=== PATIENT | male | born 1955 | race Hispanic/Latino ===

== ENCOUNTER 2017-11-23 07:53 | Emergency (ER) | payer MEDICAID ==
[~2017-11-23 07:53] MED LIST: AMOX-429 PO; ESCI10TA54 PO; FOLI1TAB15 PO; LEVO500T2 PO; LISI-613 PO; SERT100T12 PO; THIAM100TB PO
[2017-11-23 08:27] LABS: BASOPHILS % (AUTO) 1.5 % (0.0-5.0); EOSINOPHILS % (AUTO) 14.1 % (0.0-8.0); LYMPHOCYTES % (AUTO) 31.2 % (21.0-51.0); MEAN CORPUSCULAR HEMOGLOBIN 32.7 pg (27.0-33.0); MEAN CORPUSCULAR HGB CONC 34.6 g/dL (32.0-36.0); MEAN CORPUSCULAR VOLUME 94.4 fL (79-99); MONOCYTES % (AUTO) 7.9 % (3.0-13.0); NEUTROPHILS % (AUTO) 45.3 % (40.0-77.0); NUCLEATED RED BLOOD CELLS 0.1 % (0.0-0.19); PLATELET COUNT (AUTO) 61 K/uL (130-400); RED BLOOD CELL COUNT(AUTO) 3.82 MIL/uL (4.50-6.20); RED CELL DISTRIBUTION WIDTH 15.3 % (11.0-15.5); WHITE BLOOD COUNT (AUTO) 4.1 K/uL (4.8-10.8)
[2017-11-23] MEDS ORDERED: DIAZEPAM 5 MG TABLET ONE (08:28)
[2017-11-23 08:37] LABS: INR 1.29 (0.85-1.15); PARTIAL THROMBOPLASTIN TIME 30.4 SEC (26.3-35.5); PROTHROMBIN TIME 13.5 SEC (9.6-11.6)
[2017-11-23 08:54] LABS: CREATININE 0.7 mg/dL (0.5-1.5); POTASSIUM 3.4 mmol/L (3.5-5.1)
[2017-11-23 08:58] LABS: ALBUMIN 3.5 g/dL (3.5-5.0); BILIRUBIN,TOTAL 1.7 mg/dL (0.2-1.0); TOTAL PROTEIN, SERUM 9.6 g/dL (6.0-8.3)
[2017-11-23 09:11] LABS: AMPHET/METH SCREEN,URINE NEGATIVE (NEGATIVE); BARBITURATE SCREEN, URINE NEGATIVE (NEGATIVE); BENZODIAZEPINES SCREEN,URINE NEGATIVE (NEGATIVE); CANNABINOID SCREEN,URINE NEGATIVE (NEGATIVE); COCAINE SCREEN,URINE NEGATIVE (NEGATIVE); OPIATE SCREEN,URINE NEGATIVE (NEGATIVE); PHENCYCLIDINE SCREEN,URINE NEGATIVE (NEGATIVE)
== END 2017-11-23 10:10 | disposition home or self-care (01) ==
LOC: EDH 07:53
DX: F10.10 Alcohol abuse, uncomplicated (principal); F41.9 Anxiety disorder, unspecified; I10 Essential (primary) hypertension; R79.1 Abnormal coagulation profile; Z87.891 Personal history of nicotine dependence
CPT/HCPCS: 36415; 71045; 80053; 80305; 82550; 84484; 85025; 85610; 85730; 93005; 94761; 99285; G0480

== ENCOUNTER 2018-06-16 22:01 | Emergency (ER) | payer MEDICAID ==
[~2018-06-16 22:01] MED LIST changes: -AMOX-429 PO; +DICY10CA13 PO; -LEVO500T2 PO; +PANT40TA25 PO
[2018-06-16] MEDS ORDERED: LORAZEPAM 1 MG TABLET ONE (23:00)
[2018-06-16 23:13] LABS: BASOPHILS % (AUTO) 0.3 % (0.0-5.0); EOSINOPHILS % (AUTO) 30.7 % (0.0-8.0); HEMATOCRIT 25.7 % (42-54); LYMPHOCYTES % (AUTO) 15.4 % (21.0-51.0); MEAN CORPUSCULAR HEMOGLOBIN 29.3 pg (27.0-33.0); MEAN CORPUSCULAR HGB CONC 33.8 g/dL (32.0-36.0); MEAN CORPUSCULAR VOLUME 86.8 fL (79-99); MONOCYTES % (AUTO) 12.8 % (3.0-13.0); NEUTROPHILS % (AUTO) 40.8 % (40.0-77.0); PLATELET COUNT (AUTO) 44 K/uL (130-400); RED BLOOD CELL COUNT(AUTO) 2.96 MIL/uL (4.50-6.20); RED CELL DISTRIBUTION WIDTH 19.7 % (11.0-15.5); WHITE BLOOD COUNT (AUTO) 4.7 K/uL (4.8-10.8)
[2018-06-16 23:19] LABS: CREATININE 0.7 mg/dL (0.5-1.5); POTASSIUM 3.6 mmol/L (3.5-5.1)
[2018-06-16 23:24] LABS: ALBUMIN 3.1 g/dL (3.5-5.0); BILIRUBIN,TOTAL 1.2 mg/dL (0.2-1.0)
== END 2018-06-17 00:42 | disposition home or self-care (01) ==
LOC: EDH 22:01
DX: S16.1XXA Strain of muscle, fascia and tendon at neck level, initial encounter (principal); R51 Headache; I10 Essential (primary) hypertension; F10.10 Alcohol abuse, uncomplicated; F41.9 Anxiety disorder, unspecified; Z79.899 Other long term (current) drug therapy; W18.39XA Other fall on same level, initial encounter; Y93.89 Activity, other specified; Y92.89 Other specified places as the place of occurrence of the external cause; Y99.8 Other external cause status
CPT/HCPCS: 36415; 70450; 72125; 80053; 85025

== ENCOUNTER 2019-01-13 15:30 | Inpatient (IN) | payer MEDICAID | END 2019-01-18 20:00 | disposition home or self-care (01) | LOC: EDH 15:30 → 2DH 01-14 20:33 → EDHIP 15:31 | DX: F10.231 Alcohol dependence with withdrawal delirium (principal); D69.59 Other secondary thrombocytopenia; M62.82 Rhabdomyolysis; D69.6 Thrombocytopenia, unspecified; F19.10 Other psychoactive substance abuse, uncomplicated; Z71.89 Other specified counseling; E87.1 Hypo-osmolality and hyponatremia; F32.9 Major depressive disorder, single episode, unspecified; K70.30 Alcoholic cirrhosis of liver without ascites; R42 Dizziness and giddiness; I10 Essential (primary) hypertension ==

== ENCOUNTER 2019-02-16 16:40 | Emergency (ER) | payer MEDICARE ==
[~2019-02-16 16:40] MED LIST changes: -DICY10CA13 PO; -ESCI10TA54 PO; -FOLI1TAB15 PO; -SERT100T12 PO; -THIAM100TB PO
[2019-02-16] MEDS ORDERED: DIAZEPAM 5 MG TABLET ONE (17:14)
[2019-02-16 17:21] LABS: BASOPHILS % (AUTO) 0.6 % (0.0-5.0); EOSINOPHILS % (AUTO) 3.8 % (0.0-8.0); HEMATOCRIT 26.6 % (42-54); LYMPHOCYTES % (AUTO) 16.7 % (21.0-51.0); MEAN CORPUSCULAR HEMOGLOBIN 27.6 pg (27.0-33.0); MEAN CORPUSCULAR HGB CONC 33.3 g/dL (32.0-36.0); MEAN CORPUSCULAR VOLUME 82.9 fL (79-99); MONOCYTES % (AUTO) 6.4 % (3.0-13.0); NEUTROPHILS % (AUTO) 72.5 % (40.0-77.0); PLATELET COUNT (AUTO) 36 K/uL (130-400); RED CELL DISTRIBUTION WIDTH 20.3 % (11.0-15.5); WHITE BLOOD COUNT (AUTO) 3.3 K/uL (4.8-10.8)
[2019-02-16 17:30] LABS: AMPHET/METH SCREEN,URINE NEGATIVE (NEGATIVE); BARBITURATE SCREEN, URINE NEGATIVE (NEGATIVE); BENZODIAZEPINES SCREEN,URINE NEGATIVE (NEGATIVE); CANNABINOID SCREEN,URINE NEGATIVE (NEGATIVE); COCAINE SCREEN,URINE NEGATIVE (NEGATIVE); OPIATE SCREEN,URINE NEGATIVE (NEGATIVE); PHENCYCLIDINE SCREEN,URINE NEGATIVE (NEGATIVE)
[2019-02-16 17:35] LABS: CREATININE 0.9 mg/dL (0.5-1.5); POTASSIUM 3.5 mmol/L (3.5-5.1)
[2019-02-16 17:39] LABS: ALBUMIN 3.1 g/dL (3.5-5.0); BILIRUBIN,DIRECT 0.7 mg/dL (0.0-0.3); BILIRUBIN,TOTAL 1.4 mg/dL (0.2-1.0); TOTAL PROTEIN, SERUM 8.2 g/dL (6.0-8.3)
== END 2019-02-16 19:15 | disposition home or self-care (01) ==
LOC: EDH 16:40
DX: R07.89 Other chest pain (principal); F10.20 Alcohol dependence, uncomplicated; F41.9 Anxiety disorder, unspecified; I10 Essential (primary) hypertension; Z87.891 Personal history of nicotine dependence
CPT/HCPCS: 36415; 71045; 80048; 80076; 80305; 82140; 82550; 83690; 84484; 85025; 93005

== ENCOUNTER 2019-06-27 09:39 | Emergency (ER) | payer MEDICARE ==
[2019-06-27 10:22] LABS: BASOPHILS % (AUTO) 0.3 % (0.0-5.0); EOSINOPHILS % (AUTO) 3.1 % (0.0-8.0); HEMATOCRIT 38.5 % (42-54); LYMPHOCYTES % (AUTO) 9.5 % (21.0-51.0); MEAN CORPUSCULAR HEMOGLOBIN 34.3 pg (27.0-33.0); MEAN CORPUSCULAR HGB CONC 35.1 g/dL (32.0-36.0); MEAN CORPUSCULAR VOLUME 97.7 fL (79-99); MONOCYTES % (AUTO) 6.1 % (3.0-13.0); PLATELET COUNT (AUTO) 127 K/uL (130-400); RED BLOOD CELL COUNT(AUTO) 3.94 MIL/uL (4.50-6.20)
[2019-06-27 10:29] LABS: CREATININE 0.8 mg/dL (0.5-1.5); POTASSIUM 3.5 mmol/L (3.5-5.1)
[2019-06-27 10:34] LABS: ALBUMIN 3.3 g/dL (3.5-5.0); BILIRUBIN,TOTAL 2.1 mg/dL (0.2-1.0); TOTAL PROTEIN, SERUM 9.2 g/dL (6.0-8.3)
[2019-06-27] MEDS ORDERED: LORAZEPAM 2 MG/ML 1 ML VIAL ONE (10:45)
[2019-06-27] MEDS ORDERED: SODIUM CHLORIDE 0.9% 500ML 500 ML IV ONE (10:46)
[2019-06-27 12:03] LABS: APPEARANCE,URINE Clear (CLEAR); BILIRUBIN,URINE Negative (NEGATIVE); COLOR,URINE Dark Yellow (YELLOW); GLUCOSE, URINE (UA) Negative (NEGATIVE); KETONES,URINE 15 mg/dL (NEGATIVE); LEUKOCYTE ESTERASE ,URINE Negative (NEGATIVE); NITRATE,URINE Negative (NEGATIVE); OCCULT BLOOD,URINE Negative (NEGATIVE); PH,URINE 6.5 (5.0-8.0); PROTEIN,URINE Negative (NEGATIVE)
[2019-06-27 12:11] LABS: AMPHET/METH SCREEN,URINE NEGATIVE (NEGATIVE); BARBITURATE SCREEN, URINE NEGATIVE (NEGATIVE); BENZODIAZEPINES SCREEN,URINE NEGATIVE (NEGATIVE); CANNABINOID SCREEN,URINE NEGATIVE (NEGATIVE); COCAINE SCREEN,URINE NEGATIVE (NEGATIVE); OPIATE SCREEN,URINE NEGATIVE (NEGATIVE); PHENCYCLIDINE SCREEN,URINE NEGATIVE (NEGATIVE)
[2019-06-27 13:10] LABS: BACTERIA,URINE Rare /HPF (None Seen); RBC,URINE None Seen /HPF (0-1); SQUAMOUS EPITHELIAL CELL,UR 0-2 /HPF (0-2); WBC,URINE None Seen /HPF (0-1)
[2019-06-27] MEDS ORDERED: THIAMINE HCL 100 MG TABLET ONE (13:11)
== END 2019-06-27 13:17 | disposition home or self-care (01) ==
LOC: EDH 09:39
DX: F41.0 Panic disorder [episodic paroxysmal anxiety] (principal); I10 Essential (primary) hypertension; F10.20 Alcohol dependence, uncomplicated; Y90.9 Presence of alcohol in blood, level not specified
CPT/HCPCS: 36415; 80053; 80305; 81001; 85025; 93005; 96374; 99285; J2060; J7040

== ENCOUNTER 2019-07-15 12:11 | Observation (INO) | payer MEDICARE ==
[~2019-07-15] VITALS: Ht 157.5 cm; Wt 62.5 kg
[2019-07-15 12:33] LABS: BASOPHILS % (AUTO) 0.9 % (0.0-5.0); EOSINOPHILS % (AUTO) 5.2 % (0.0-8.0); HEMATOCRIT 38.5 % (42-54); LYMPHOCYTES % (AUTO) 19.2 % (21.0-51.0); MEAN CORPUSCULAR HEMOGLOBIN 33.8 pg (27.0-33.0); MEAN CORPUSCULAR HGB CONC 34.6 g/dL (32.0-36.0); MEAN CORPUSCULAR VOLUME 97.8 fL (79-99); MONOCYTES % (AUTO) 6.3 % (3.0-13.0); NEUTROPHILS % (AUTO) 68.4 % (40.0-77.0); NUCLEATED RED BLOOD CELLS 0.2 % (0.0-0.19); PLATELET COUNT (AUTO) 37 K/uL (130-400); RED BLOOD CELL COUNT(AUTO) 3.94 MIL/uL (4.50-6.20); RED CELL DISTRIBUTION WIDTH 16.4 % (11.0-15.5); WHITE BLOOD COUNT (AUTO) 3.6 K/uL (4.8-10.8)
[2019-07-15] MEDS ORDERED: SODIUM CHLORIDE 0.9% 1000ML 1,000 ML IV ONE ×2 (12:38→15:53)
[2019-07-15] MEDS ORDERED: THIAMINE HCL 100 MG/ML 2ML VIAL ONE (12:39)
[2019-07-15] MEDS ORDERED: LORAZEPAM 2 MG/ML 1 ML VIAL ONE (12:39)
[2019-07-15 12:57] LABS: INR 1.45 (0.85-1.15); PARTIAL THROMBOPLASTIN TIME 32.6 SEC (26.3-35.5); PROTHROMBIN TIME 14.7 SEC (9.6-11.6)
[2019-07-15 13:04] LABS: BILIRUBIN,TOTAL 3.2 mg/dL (0.2-1.0); CREATININE 0.8 mg/dL (0.5-1.5); TOTAL PROTEIN, SERUM 8.5 g/dL (6.0-8.3)
[2019-07-15] MEDS: SODIUM CHLORIDE 0.9% 1000ML 1,000 ML IV SCH (14:20)
[2019-07-15] MEDS ORDERED: POTASSIUM BICARB/CIT AC 25 MEQ TABLET.EFF ONE (14:27)
[2019-07-15] MEDS ORDERED: ONDANSETRON HCL 4 MG/2 ML VIAL IV PRN (14:30)
[2019-07-15] MEDS ORDERED: POTASSIUM CHLORIDE 20MEQ/100ML 100 ML IV PRN (14:30)
[2019-07-15] MEDS ORDERED: LORAZEPAM 2 MG/ML 1 ML VIAL IVP PRN (14:30)
[2019-07-15] MEDS ORDERED: ACETAMINOPHEN 325 MG TAB PO PRN (14:30)
[2019-07-15] MEDS ORDERED: PHARMACY COMMUNICATION MISC PRN (14:30)
[2019-07-15] MEDS ORDERED: LIDOCAINE HCL-MPF 1% 2ML VIAL IV PRN (14:30)
[2019-07-15 14:44] LABS: APPEARANCE,URINE Clear (CLEAR); BILIRUBIN,URINE Negative (NEGATIVE); COLOR,URINE Yellow (YELLOW); GLUCOSE, URINE (UA) Negative (NEGATIVE); KETONES,URINE Trace mg/dL (NEGATIVE); LEUKOCYTE ESTERASE ,URINE Negative (NEGATIVE); NITRATE,URINE Negative (NEGATIVE); OCCULT BLOOD,URINE Negative (NEGATIVE); PROTEIN,URINE Negative (NEGATIVE)
[2019-07-15 14:52] LABS: AMPHET/METH SCREEN,URINE NEGATIVE (NEGATIVE); BARBITURATE SCREEN, URINE NEGATIVE (NEGATIVE); BENZODIAZEPINES SCREEN,URINE NEGATIVE (NEGATIVE); CANNABINOID SCREEN,URINE NEGATIVE (NEGATIVE); COCAINE SCREEN,URINE NEGATIVE (NEGATIVE); OPIATE SCREEN,URINE NEGATIVE (NEGATIVE); PHENCYCLIDINE SCREEN,URINE NEGATIVE (NEGATIVE)
[2019-07-15 15:03] LABS: BACTERIA,URINE Few /HPF (None Seen); MUCUS,URINE Few LPF (None Seen); RBC,URINE 0-1 /HPF (0-1); SQUAMOUS EPITHELIAL CELL,UR 0-2 /HPF (0-2); WBC,URINE 0-1 /HPF (0-1)
[2019-07-15] MEDS ORDERED: PHARMACY COMMUNICATION MISC SCH (16:15)
[2019-07-15] MEDS: PHARMACY COMMUNICATION MISC SCH (16:30)
[2019-07-15] MEDS ORDERED: POTASSIUM CHLORIDE 20 MEQ ERTAB PO ONE ×2 (16:55→20:43)
[2019-07-15] MEDS ORDERED: MAGNESIUM 2GM PREMIX 50ML 50 ML IV ONE (16:55)
[2019-07-15] MEDS ORDERED: ONDANSETRON HCL 4 MG/2 ML VIAL ONE (17:06)
[2019-07-15] MEDS ORDERED: CHLORDIAZEPOXIDE HCL 25 MG CAP ONE (17:19)
[2019-07-15] MEDS ORDERED: POTASSIUM CHLORIDE 10% ELIXIR 20 MEQ/15 ML UDCUP ONE (20:39)
[2019-07-15 20:46] LABS: CREATINE KINASE, TOTAL 141 U/L (21-232); MYOGLOBIN 53 ng/mL (10-92); TROPONIN I < 0.04 ng/mL (0.00-0.06)
[2019-07-15] MEDS ORDERED: POTASSIUM CHLORIDE 20MEQ/100ML 100 ML IV ONE (20:58)
[2019-07-15] MEDS ORDERED: LIDOCAINE HCL 1% 20 ML VIAL ONE (20:58)
[2019-07-15] MEDS ORDERED: FAMOTIDINE/PF 20 MG/2 ML VIAL IV SCH (21:00)
[2019-07-15 22:05] VITALS: BP 145/82
[2019-07-15] MEDS: CHLORDIAZEPOXIDE HCL 25 MG CAP PO PRN (23:18)
[2019-07-15] MEDS ORDERED: LISI-617 PO (23:27)
[2019-07-16] VITALS: BP 133/79
[2019-07-16] MEDS: PHARMACY COMMUNICATION MISC SCH ×3 (00:30→16:30)
[2019-07-16 04:00] VITALS: BP 147/86
[2019-07-16] MEDS: SODIUM CHLORIDE 0.9% 1000ML 1,000 ML IV SCH ×2 (05:05→17:31)
[2019-07-16 05:36] LABS: BASOPHILS % (AUTO) 0.8 % (0.0-5.0); HEMATOCRIT 32.8 % (42-54); LYMPHOCYTES % (AUTO) 14.8 % (21.0-51.0); MEAN CORPUSCULAR HEMOGLOBIN 34.8 pg (27.0-33.0); MEAN CORPUSCULAR HGB CONC 34.8 g/dL (32.0-36.0); MEAN CORPUSCULAR VOLUME 99.9 fL (79-99); MONOCYTES % (AUTO) 8.9 % (3.0-13.0); NEUTROPHILS % (AUTO) 57.5 % (40.0-77.0); PLATELET COUNT (AUTO) 27 K/uL (130-400); RED BLOOD CELL COUNT(AUTO) 3.29 MIL/uL (4.50-6.20); RED CELL DISTRIBUTION WIDTH 16.2 % (11.0-15.5); WHITE BLOOD COUNT (AUTO) 3.6 K/uL (4.8-10.8)
[2019-07-16 05:42] LABS: CARBON DIOXIDE 28 mmol/L (21-32); CHLORIDE 102 mmol/L (101-111); CREATININE 0.8 mg/dL (0.5-1.5); GLOMERULAR FILTR. RATE CALC 103 mL/min (>60); GLUCOSE,RANDOM 77 mg/dL (70-105); POTASSIUM 3.4 mmol/L (3.5-5.1); SODIUM SERUM 138 mmol/L (136-145); UREA NITROGEN, BLOOD 4 mg/dL (7-18)
[2019-07-16 06:04] LABS: ALANINE AMINOTRANSFERASE 38 U/L (12-78); ALBUMIN 2.5 g/dL (3.5-5.0); AMMONIA 52 umol/L (11-32); ASPARTATE AMINOTRANSFERASE 119 U/L (10-37); BILIRUBIN,DIRECT 1.9 mg/dL (0.0-0.3); BILIRUBIN,TOTAL 4.1 mg/dL (0.2-1.0); CREATINE KINASE, TOTAL 116 U/L (21-232); MYOGLOBIN 48 ng/mL (10-92); TOTAL PROTEIN, SERUM 7.1 g/dL (6.0-8.3); TROPONIN I < 0.04 ng/mL (0.00-0.06)
[2019-07-16 08:00] VITALS: BP 143/79
[2019-07-16] MEDS: MULTIVITAMIN TABLET PO SCH (10:45)
[2019-07-16] MEDS: FOLIC ACID 1 MG TABLET PO SCH (10:45)
[2019-07-16] MEDS: THIAMINE HCL 100 MG/ML 2ML VIAL IM SCH (10:46)
[2019-07-16 11:00] VITALS: BP 135/74
[2019-07-16 12:30] LABS: CREATINE KINASE, TOTAL 149 U/L (21-232); MYOGLOBIN 86 ng/mL (10-92); TROPONIN I < 0.04 ng/mL (0.00-0.06)
[2019-07-16] MEDS: PANTOPRAZOLE SODIUM 40 MG TABLET.DR PO SCH (14:56)
[2019-07-16] MEDS: POTASSIUM CHLORIDE 20 MEQ ERTAB PO PRN ×2 (14:56→17:31)
[2019-07-16 16:00] VITALS: BP 126/71
--- NOTE | 2019-07-16 18:00 | NUR ---
INITIAL CM NOTE MET W PT AT BEDSIDE- AAOX3, DAUGHTER CELNA LIVES WITH HIM AND WILL PROVIDE TRANSPORT RECNET , TEARFUL; STATES VEYR ANIXOUS SINCE HIS SOUSE PASSED. HOE SAFE AND ACCESSIBLE, DAUGHTER IS PORVIDER, OCONNELL SNOT KNOW HOW MANY HOURS,\\DCP IS HOME. PT IN OBS STATUS AND HAVE RELAYED THIS TO .
[2019-07-16 20:00] VITALS: BP 124/77
[2019-07-16 20:39] LABS: CREATINE KINASE, TOTAL 101 U/L (21-232); MYOGLOBIN 40 ng/mL (10-92); TROPONIN I < 0.04 ng/mL (0.00-0.06)
[2019-07-16] MEDS: CHLORDIAZEPOXIDE HCL 25 MG CAP PO PRN (22:37)
[2019-07-17] VITALS: BP 119/78
[2019-07-17] MEDS: PHARMACY COMMUNICATION MISC SCH ×2 (00:30→08:30)
[2019-07-17] MEDS: CHLORDIAZEPOXIDE HCL 25 MG CAP PO PRN ×2 (01:09→06:27)
[2019-07-17 04:00] VITALS: BP 134/72
[2019-07-17 05:44] LABS: BASOPHILS % (AUTO) 0.7 % (0.0-5.0); EOSINOPHILS % (AUTO) 18.6 % (0.0-8.0); HEMATOCRIT 31.7 % (42-54); LYMPHOCYTES % (AUTO) 15.3 % (21.0-51.0); MEAN CORPUSCULAR HEMOGLOBIN 34.9 pg (27.0-33.0); MEAN CORPUSCULAR HGB CONC 34.9 g/dL (32.0-36.0); MEAN CORPUSCULAR VOLUME 99.9 fL (79-99); MONOCYTES % (AUTO) 10.8 % (3.0-13.0); NEUTROPHILS % (AUTO) 54.6 % (40.0-77.0); PLATELET COUNT (AUTO) 30 K/uL (130-400); RED BLOOD CELL COUNT(AUTO) 3.18 MIL/uL (4.50-6.20); RED CELL DISTRIBUTION WIDTH 15.7 % (11.0-15.5); WHITE BLOOD COUNT (AUTO) 3.6 K/uL (4.8-10.8)
[2019-07-17 05:55] LABS: ALBUMIN 2.3 g/dL (3.5-5.0); BILIRUBIN,TOTAL 4.9 mg/dL (0.2-1.0); CREATININE 0.7 mg/dL (0.5-1.5); POTASSIUM 3.3 mmol/L (3.5-5.1); TOTAL PROTEIN, SERUM 6.5 g/dL (6.0-8.3)
[2019-07-17] MEDS: SODIUM CHLORIDE 0.9% 1000ML 1,000 ML IV SCH (06:27)
[2019-07-17] MEDS: POTASSIUM CHLORIDE 10% ELIXIR 20 MEQ/15 ML UDCUP PO PRN ×3 (06:35→13:34)
[2019-07-17 08:00] VITALS: BP 122/74
[2019-07-17] MEDS ORDERED: PANT40TA25 PO (08:15)
[2019-07-17] MEDS ORDERED: CARV6.25 PO (08:15)
[2019-07-17] MEDS ORDERED: LIB5 PO (08:15)
[2019-07-17] MEDS ORDERED: TRAZ-185 PO (08:15)
[2019-07-17] MEDS: THIAMINE HCL 100 MG/ML 2ML VIAL IM SCH (10:22)
[2019-07-17] MEDS: PANTOPRAZOLE SODIUM 40 MG TABLET.DR PO SCH (10:23)
[2019-07-17] MEDS: MULTIVITAMIN TABLET PO SCH (10:23)
[2019-07-17] MEDS: FOLIC ACID 1 MG TABLET PO SCH (10:23)
[2019-07-17 11:46] VITALS: BP 119/71
[2019-07-17 15:42] VITALS: BP 136/82
--- NOTE | 2019-07-17 16:35 | NUR ---
PATIENT DISCHARGE PATIENT DISCHARGED, IV DISCONTINUED, BLEEDING CONTROLLED, CATHLON INTACT, PATIENT TOLERATED WITHOUT INCIDENT.
== END 2019-07-17 17:05 | disposition home or self-care (01) ==
LOC: EDH 12:11 → EDHIP 14:20 → 3AH 21:42
PROVIDERS: ADMIT Internal Medicine; ATTEND Internal Medicine
DX: R07.89 Other chest pain (principal); I10 Essential (primary) hypertension; D61.818 Other pancytopenia; E11.9 Type 2 diabetes mellitus without complications; D73.1 Hypersplenism; E87.6 Hypokalemia; F12.90 Cannabis use, unspecified, uncomplicated; K21.0 Gastro-esophageal reflux disease with esophagitis; K70.30 Alcoholic cirrhosis of liver without ascites; K70.10 Alcoholic hepatitis without ascites; F41.9 Anxiety disorder, unspecified; F10.10 Alcohol abuse, uncomplicated; K76.6 Portal hypertension; Z79.82 Long term (current) use of aspirin; Z79.899 Other long term (current) drug therapy
CPT/HCPCS: 36415 ×3; 70450; 71045; 80048; 80053 ×2; 80076; 80305; 81001; 82140 ×2; 82550 ×5; 82607; 82746; 83721; 83735 ×2; 83874 ×4; 84484 ×5; 85025 ×3; 85610; 85730; 93005 ×6; 96372 ×2; 96374; 96375; 99284; A4600; G0378 ×51; J2060 ×2; J2405 ×2; J3411 ×3; J3475; J3480; J7030 ×3

== ENCOUNTER → 2019-09-23 | Outpatient (CLI) | payer OTHER, MEDICARE ==
[~2019-09-23] MED LIST changes: +CARV6.25 PO; +LIB5 PO; -LISI-613 PO; +TRAZ-185 PO
== END | disposition home or self-care (01) ==
LOC: RAH 08:54
PROVIDERS: ATTEND Internal Medicine Gastroenterology
DX: K80.20 Calculus of gallbladder without cholecystitis without obstruction (principal); K74.60 Unspecified cirrhosis of liver; I86.8 Varicose veins of other specified sites
CPT/HCPCS: 76700; 93975

== ENCOUNTER → 2020-08-20 | Outpatient (CLI) | payer OTHER, MEDICARE ==
[~2020-08-20] MED LIST changes: -PANT40TA25 PO; +PANT40TA54 PO
== END | disposition home or self-care (01) ==
LOC: RAH 08:50
PROVIDERS: ATTEND Internal Medicine Gastroenterology
DX: K70.30 Alcoholic cirrhosis of liver without ascites (principal); I86.8 Varicose veins of other specified sites
CPT/HCPCS: 76700; 93975

== ENCOUNTER 2020-09-30 15:40 | Inpatient (IN) | payer OTHER, MEDICARE ==
[~2020-09-30] VITALS: Ht 165.1 cm; Wt 68.0 kg
[2020-09-30] MEDS ORDERED: ONDANSETRON 4MG INJ ONE ×3 (16:05→22:34)
[2020-09-30] MEDS ORDERED: THIAMINE HCL 100 MG/ML 2ML VIAL ONE (16:06)
[2020-09-30] MEDS ORDERED: 0.9%NACL 1000ML 1,000 ML IV ONE (16:06)
[2020-09-30 17:01] LABS: BASOPHILS % (AUTO) 0.3 % (0.0-5.0); EOSINOPHILS % (AUTO) 1.5 % (0.0-8.0); HEMATOCRIT 42.8 % (42-54); LYMPHOCYTES % (AUTO) 11.7 % (21.0-51.0); MEAN CORPUSCULAR HEMOGLOBIN 33.1 pg (27.0-33.0); MEAN CORPUSCULAR HGB CONC 35.5 g/dL (32.0-36.0); MEAN CORPUSCULAR VOLUME 93.2 fL (79-99); MONOCYTES % (AUTO) 6.5 % (3.0-13.0); NEUTROPHILS % (AUTO) 79.8 % (40.0-77.0); PLATELET COUNT (AUTO) 109 K/uL (130-400); RED BLOOD CELL COUNT(AUTO) 4.59 MIL/uL (4.50-6.20); RED CELL DISTRIBUTION WIDTH 12.6 % (11.0-15.5); WHITE BLOOD COUNT (AUTO) 6.5 K/uL (4.8-10.8)
[2020-09-30 17:12] LABS: CREATININE 1.1 mg/dL (0.5-1.5); POTASSIUM 3.2 mmol/L (3.5-5.1)
[2020-09-30 17:13] LABS: INR 1.34 (0.85-1.15); PROTHROMBIN TIME 14.2 SEC (9.6-11.6)
[2020-09-30 17:15] LABS: PARTIAL THROMBOPLASTIN TIME 28.7 SEC (26.3-35.5)
[2020-09-30 17:16] LABS: ALBUMIN 3.9 g/dL (3.5-5.0); BILIRUBIN,TOTAL 4.9 mg/dL (0.2-1.0); TOTAL PROTEIN, SERUM 9.1 g/dL (6.0-8.3)
[2020-09-30 17:49] LABS: AMPHET/METH SCREEN,URINE NEGATIVE (NEGATIVE); BARBITURATE SCREEN, URINE NEGATIVE (NEGATIVE); BENZODIAZEPINES SCREEN,URINE NEGATIVE (NEGATIVE); CANNABINOID SCREEN,URINE POSITIVE (NEGATIVE); COCAINE SCREEN,URINE NEGATIVE (NEGATIVE); OPIATE SCREEN,URINE NEGATIVE (NEGATIVE); PHENCYCLIDINE SCREEN,URINE NEGATIVE (NEGATIVE)
[2020-09-30] MEDS ORDERED: FAMOTIDINE 20MG VIAL IV ONE (18:14)
[2020-09-30] MEDS ORDERED: LORAZEPAM 2 MG/ML 1 ML VIAL ONE (19:33)
[2020-09-30] MEDS: 0.9%NACL 1000ML 1,000 ML IV SCH (22:00)
[2020-09-30] MEDS ORDERED: ACETAMINOPHEN 325 MG TAB PO PRN (22:00)
[2020-09-30] MEDS ORDERED: ONDANSETRON 4MG INJ IV PRN ×2 (22:00→22:30)
[2020-09-30] MEDS: CARVEDILOL 3.125 MG TABLET PO SCH (22:00)
[2020-09-30] MEDS: LISINOPRIL 10 MG TABLET PO SCH (22:00)
[2020-09-30] MEDS ORDERED: LACTULOSE 20 GM/30 ML UDCUP PO PRN (22:00)
[2020-09-30] MEDS ORDERED: PHARMACY COMMUNICATION MISC PRN (22:30)
[2020-09-30] MEDS ORDERED: LORAZEPAM 2 MG/ML 1 ML VIAL IVP PRN (22:30)
[2020-09-30] MEDS ORDERED: LABETALOL 20MG SYG IV PRN (22:30)
[2020-09-30] MEDS ORDERED: CHLORDIAZEPOXIDE HCL 25 MG CAP PO PRN (22:30)
[2020-09-30] MEDS ORDERED: CARVEDILOL 6.25 MG TABLET PO ONE (22:34)
[2020-09-30] MEDS ORDERED: LISINOPRIL 20 MG TABLET ONE (22:34)
[2020-09-30 22:37] LABS: MAGNESIUM 1.3 mg/dL (1.80-2.40); PHOSPHORUS 3.8 mg/dL (2.5-4.9)
[2020-09-30] MEDS ORDERED: LISINOPRIL 5 MG TABLET ONE (22:37)
[2020-10-01] MEDS: 0.9%NACL 1000ML 1,000 ML IV SCH ×3 (08:00→20:36)
[2020-10-01] MEDS ORDERED: MAGNESIUM 2GM PREMIX 50ML 50 ML IV ONE (08:32)
[2020-10-01] MEDS: MULTIVITAMIN TABLET PO SCH (09:00)
[2020-10-01] MEDS: FOLIC ACID 1 MG TABLET PO SCH (09:00)
[2020-10-01] MEDS: CARVEDILOL 3.125 MG TABLET PO SCH ×2 (09:00→20:35)
[2020-10-01] MEDS: LISINOPRIL 10 MG TABLET PO SCH (09:00)
[2020-10-01] MEDS: PHYTONADIONE 10 MG/1 ML AMP IM SCH (09:00)
[2020-10-01] MEDS: THIAMINE HCL 100 MG/ML 2ML VIAL IM SCH (09:00)
[2020-10-01] MEDS: FAMOTIDINE 20MG VIAL IV SCH ×2 (09:00→20:33)
[2020-10-01] MEDS ORDERED: THIAMINE HCL 100 MG/ML 2ML VIAL ONE (09:12)
[2020-10-01] MEDS ORDERED: PHYTONADIONE 10 MG/1 ML AMP ONE (09:12)
[2020-10-01] MEDS ORDERED: CARVEDILOL 6.25 MG TABLET PO ONE (09:12)
[2020-10-01] MEDS ORDERED: FOLIC ACID 1 MG TABLET ONE (09:13)
[2020-10-01] MEDS ORDERED: FAMOTIDINE 20MG VIAL IV ONE (09:13)
[2020-10-01 17:50] VITALS: BP 153/84
[2020-10-01 20:00] VITALS: BP 131/69
[2020-10-01] MEDS ORDERED: MAGNESIUM 2GM PREMIX 50ML 50 ML IV PRN (20:00)
[2020-10-01] MEDS ORDERED: POTASSIUM CHLORIDE 10% ELIXIR 20 MEQ/15 ML UDCUP PO PRN (20:00)
[2020-10-01] MEDS ORDERED: LIDOCAINE HCL-MPF 1% 2ML VIAL IV PRN ×2 (20:00)
[2020-10-01] MEDS ORDERED: POTASSIUM CHLORIDE 20MEQ/100ML 100 ML IV PRN ×2 (20:00)
[2020-10-01] MEDS ORDERED: KCL 20 MEQ ERTAB PO ONE (20:15)
[2020-10-01] MEDS: KCL 20 MEQ ERTAB PO PRN (22:21)
[2020-10-01] MEDS ORDERED: 1/2 NS 1000ML 1,000 ML IV SCH (23:30)
[2020-10-02] VITALS: BP 150/81
[2020-10-02] MEDS: KCL 20 MEQ ERTAB PO PRN (00:06)
[2020-10-02 04:00] VITALS: BP 134/71
[2020-10-02 04:42] LABS: HEMATOCRIT 36.7 % (42-54); MEAN CORPUSCULAR HEMOGLOBIN 33.5 pg (27.0-33.0); MEAN CORPUSCULAR HGB CONC 34.6 g/dL (32.0-36.0); MEAN CORPUSCULAR VOLUME 96.8 fL (79-99); RED BLOOD CELL COUNT(AUTO) 3.79 MIL/uL (4.50-6.20); RED CELL DISTRIBUTION WIDTH 13.3 % (11.0-15.5)
[2020-10-02 04:46] LABS: MAGNESIUM 1.7 mg/dL (1.80-2.40); POTASSIUM 3.8 mmol/L (3.5-5.1)
[2020-10-02 08:00] VITALS: BP 130/72
[2020-10-02] MEDS: THIAMINE HCL 100 MG/ML 2ML VIAL IM SCH (08:59)
[2020-10-02] MEDS: MULTIVITAMIN TABLET PO SCH (09:00)
[2020-10-02] MEDS: FOLIC ACID 1 MG TABLET PO SCH (09:00)
[2020-10-02] MEDS ORDERED: PANTOPRAZOLE 40 MG/VIAL IVP SCH (09:00)
[2020-10-02] MEDS: PHYTONADIONE 10 MG/1 ML AMP IM SCH (09:00)
[2020-10-02] MEDS: FAMOTIDINE 20MG VIAL IV SCH (09:01)
[2020-10-02] MEDS: LISINOPRIL 10 MG TABLET PO SCH (09:01)
[2020-10-02] MEDS: CARVEDILOL 3.125 MG TABLET PO SCH (09:01)
[2020-10-02 12:00] VITALS: BP 123/73
[2020-10-02 16:00] VITALS: BP 158/86
[2020-10-02] MEDS ORDERED: LISI10TA24 PO (17:42)
[2020-10-02] MEDS ORDERED: LACT PO (17:42)
[2020-10-02] MEDS ORDERED: FOLI1 PO (17:42)
[2020-10-02] MEDS ORDERED: THIA100V3 IM (17:42)
[2021-03-25] MEDS ORDERED: BIOF1TAB8 PO (10:35)
[2021-03-25] MEDS ORDERED: GREEN VIBRANCE (10:35)
[2021-03-25] MEDS ORDERED: FERR-72 PO (10:35)
[2021-03-25] MEDS ORDERED: PANT40TA54 PO (10:35)
[2021-03-25] MEDS ORDERED: UBID200C37 PO (10:35)
[2021-03-25] MEDS ORDERED: CARV6.25 PO (10:35)
[2021-03-25] MEDS ORDERED: [UNRECOGNIZED DRUG - OTHER] PO (10:35)
[2021-03-25] MEDS ORDERED: TRAZ-185 PO (10:35)
[2021-03-25] MEDS ORDERED: ESCI-8 PO (10:35)
[2021-03-25] MEDS ORDERED: BIOT10005 PO (10:35)
[2021-03-25] MEDS ORDERED: MELA10CA2 PO (10:35)
[2021-03-25] MEDS ORDERED: LIVER AID PO (10:35)
[2021-03-29] MEDS ORDERED: AMLO2.5T4 PO (13:01)
[2021-03-29] MEDS ORDERED: LEVE-43 PO (13:01)
[2021-03-29] MEDS ORDERED: CARV3.1262 PO (13:50)
== END 2020-10-02 19:15 | disposition home or self-care (01) | DRG 392 ==
LOC: EDH 15:40 → INTOOBSV 21:59 → EDHIP 21:59 → OBSVTOIN 21:59 → 3DH 10-01 17:50
PROVIDERS: ADMIT Internal Medicine; ATTEND Internal Medicine
DX: K29.00 Acute gastritis without bleeding (principal); D68.9 Coagulation defect, unspecified; I16.0 Hypertensive urgency; R74.8 Abnormal levels of other serum enzymes; F10.20 Alcohol dependence, uncomplicated; E87.6 Hypokalemia; Z83.3 Family history of diabetes mellitus; Z83.6 Family history of other diseases of the respiratory system; Z82.49 Family history of ischemic heart disease and other diseases of the circulatory system; I10 Essential (primary) hypertension; F32.9 Major depressive disorder, single episode, unspecified; Z82.0 Family history of epilepsy and other diseases of the nervous system; K70.30 Alcoholic cirrhosis of liver without ascites; F12.90 Cannabis use, unspecified, uncomplicated; Z20.822 Contact with and (suspected) exposure to COVID-19
CPT/HCPCS: 36415; 80048; 80053; 80305; 82140; 83735; 84100; 85025; 85027; 85610; 85730; 87426; G0378; J2060; J2405; J3411; J3430; J3475; J3490; J7030; U0003

== ENCOUNTER → 2021-02-14 | Outpatient (CLI) | payer OTHER, MEDICARE ==
[~2021-02-14] MED LIST changes: +FOLI1 PO; +LACT PO; +LISI10TA24 PO; +THIA100V3 IM
== END | disposition home or self-care (01) ==
LOC: RAH 09:25
PROVIDERS: ATTEND Internal Medicine Gastroenterology
DX: K70.30 Alcoholic cirrhosis of liver without ascites (principal); K80.20 Calculus of gallbladder without cholecystitis without obstruction
CPT/HCPCS: 76700; 93975

== ENCOUNTER 2021-04-01 19:49 | Emergency (ER) | payer OTHER, MEDICARE ==
[~2021-04-01 19:49] MED LIST changes: +AMLO2.5T4 PO; +BIOF1TAB8 PO; +BIOT10005 PO; +CARV3.1262 PO; -CARV6.25 PO; +ESCI-8 PO; +FERR-72 PO; -FOLI1 PO; +GREEN VIBRANCE; -LACT PO; +LEVE-43 PO; -LIB5 PO; -LISI10TA24 PO; +LIVER AID PO; +MELA10CA2 PO; -THIA100V3 IM; +UBID200C37 PO; +[UNRECOGNIZED DRUG - OTHER] PO
[2021-04-02 00:19] VITALS: BP 129/68
[2021-04-02] MEDS ORDERED: LIDOP TP (03:40)
[2021-04-02] MEDS ORDERED: MELO7.5T12 PO (03:40)
[2021-04-02] MEDS ORDERED: LISI10TA24 PO (03:40)
[2021-04-02] MEDS ORDERED: ORPH-43 PO (03:40)
[2021-04-02] MEDS ORDERED: KETOROLAC 60 MG VIAL (30MG/ML) IM ONE (04:00)
[2021-04-02] MEDS ORDERED: LIDOCAINE 5% TOPICAL PATCH TP ONE (04:00)
[2021-04-02] MEDS ORDERED: ORPHENADRINE CITRATE 30 MG/ML ML IM ONE (04:00)
[2021-04-02 04:09] VITALS: BP 135/76
== END 2021-04-02 04:12 | disposition home or self-care (01) ==
LOC: EDH 19:49
DX: M54.6 Pain in thoracic spine (principal); M62.838 Other muscle spasm; Z79.899 Other long term (current) drug therapy
CPT/HCPCS: 71046; 93005; 96372 ×2; 99284; J1885; J2360

== ENCOUNTER 2021-07-16 04:55 | Emergency (ER) | payer OTHER, MEDICARE ==
[~2021-07-16] VITALS: Ht 165.1 cm; Wt 70.3 kg
[~2021-07-16 04:55] MED LIST changes: +LIDOP TP; +LISI10TA24 PO; +MELO7.5T12 PO; +ORPH-43 PO
[2021-07-16 05:35] LABS: BASOPHILS % (AUTO) 0.6 % (0.0-5.0); EOSINOPHILS % (AUTO) 2.5 % (0.0-8.0); HEMATOCRIT 35.3 % (42-54); LYMPHOCYTES % (AUTO) 25.1 % (21.0-51.0); MEAN CORPUSCULAR HEMOGLOBIN 33.5 pg (27.0-33.0); MEAN CORPUSCULAR HGB CONC 35.7 g/dL (32.0-36.0); MEAN CORPUSCULAR VOLUME 93.9 fL (79-99); MONOCYTES % (AUTO) 10.2 % (3.0-13.0); NEUTROPHILS % (AUTO) 61.4 % (40.0-77.0); PLATELET COUNT (AUTO) 69 K/uL (130-400); RED BLOOD CELL COUNT(AUTO) 3.76 MIL/uL (4.50-6.20); RED CELL DISTRIBUTION WIDTH 12.8 % (11.0-15.5); WHITE BLOOD COUNT (AUTO) 5.2 K/uL (4.8-10.8)
[2021-07-16 05:43] LABS: ALBUMIN 3.1 g/dL (3.5-5.0); BILIRUBIN,TOTAL 3.3 mg/dL (0.2-1.0); CREATININE 0.9 mg/dL (0.5-1.5); POTASSIUM 3.3 mmol/L (3.5-5.1); TOTAL PROTEIN, SERUM 8.2 g/dL (6.0-8.3)
[2021-07-16] MEDS ORDERED: 0.9% NACL 500ML IV.SOLN 500 ML IV ONE (06:00)
[2021-07-16 06:23] VITALS: BP 165/94
[2021-07-16 06:25] LABS: APPEARANCE,URINE CLEAR (CLEAR); BILIRUBIN,URINE NEGATIVE (NEGATIVE); COLOR,URINE YELLOW (YELLOW); GLUCOSE, URINE (UA) NEGATIVE (NEGATIVE); KETONES,URINE 5 mg/dL (NEGATIVE); LEUKOCYTE ESTERASE ,URINE NEGATIVE (NEGATIVE); NITRATE,URINE NEGATIVE (NEGATIVE); OCCULT BLOOD,URINE NEGATIVE (NEGATIVE); PROTEIN,URINE NEGATIVE (NEGATIVE)
[2021-07-16 06:28] LABS: INR 1.29 (0.85-1.15); PROTHROMBIN TIME 13.7 SEC (9.6-11.6)
[2021-07-16 06:30] LABS: PARTIAL THROMBOPLASTIN TIME 34.3 SEC (26.3-35.5)
[2021-07-16 06:38] LABS: ALCOHOL, BLOOD 98 mg/dL (0-10); AMMONIA 39 umol/L (11-32); AMYLASE 96 U/L (25-115)
[2021-07-16 06:41] LABS: RBC,URINE None Seen /HPF (0-1)
[2021-07-16 06:42] LABS: BACTERIA,URINE Rare /HPF (None Seen); SQUAMOUS EPITHELIAL CELL,UR 0-2 /HPF (0-2)
[2021-07-16] MEDS ORDERED: LIB25 PO (07:10)
== END 2021-07-16 07:23 | disposition home or self-care (01) ==
LOC: EDH 04:55
DX: F10.230 Alcohol dependence with withdrawal, uncomplicated (principal); K70.9 Alcoholic liver disease, unspecified; F41.9 Anxiety disorder, unspecified; I10 Essential (primary) hypertension; Z79.1 Long term (current) use of non-steroidal anti-inflammatories (NSAID); Z79.899 Other long term (current) drug therapy
CPT/HCPCS: 36415; 80053; 81001; 82140; 82150; 83690; 85025; 85610; 85730; 99283; J7040

== ENCOUNTER 2021-07-16 20:19 | Emergency (ER) | payer OTHER, MEDICARE ==
[~2021-07-16] VITALS: Ht 165.1 cm; Wt 68.9 kg
[~2021-07-16 20:19] MED LIST changes: +LIB25 PO
[2021-07-16] MEDS ORDERED: THIAMINE HCL 100 MG/ML 2ML VIAL IVP STA (20:48)
[2021-07-16] MEDS ORDERED: 0.9%NACL 1000ML 1,000 ML IV ONE (21:00)
[2021-07-16 21:11] LABS: BASOPHILS % (AUTO) 0.3 % (0.0-5.0); EOSINOPHILS % (AUTO) 0.5 % (0.0-8.0); LYMPHOCYTES % (AUTO) 13.9 % (21.0-51.0); MEAN CORPUSCULAR HEMOGLOBIN 33.8 pg (27.0-33.0); MEAN CORPUSCULAR HGB CONC 36.2 g/dL (32.0-36.0); MEAN CORPUSCULAR VOLUME 93.4 fL (79-99); MONOCYTES % (AUTO) 8.1 % (3.0-13.0); NEUTROPHILS % (AUTO) 76.5 % (40.0-77.0); PLATELET COUNT (AUTO) 59 K/uL (130-400); RED BLOOD CELL COUNT(AUTO) 3.64 MIL/uL (4.50-6.20); RED CELL DISTRIBUTION WIDTH 12.6 % (11.0-15.5)
[2021-07-16 21:21] LABS: INR 1.53 (0.85-1.15)
[2021-07-16 21:24] LABS: CARBON DIOXIDE 23 mmol/L (21-32); CHLORIDE 95 mmol/L (101-111); CREATININE 1.3 mg/dL (0.5-1.5); GLOMERULAR FILTR. RATE CALC 59 mL/min (>60); GLUCOSE,RANDOM 171 mg/dL (70-105); POTASSIUM 3.3 mmol/L (3.5-5.1); SODIUM SERUM 131 mmol/L (136-145); UREA NITROGEN, BLOOD 11 mg/dL (7-18)
[2021-07-16 21:29] LABS: ALANINE AMINOTRANSFERASE 38 U/L (12-78); ALBUMIN 2.9 g/dL (3.5-5.0); ALCOHOL, BLOOD < 3 mg/dL (0-10); AMYLASE 86 U/L (25-115); ASPARTATE AMINOTRANSFERASE 87 U/L (10-37); BILIRUBIN,TOTAL 4.6 mg/dL (0.2-1.0); TOTAL PROTEIN, SERUM 7.6 g/dL (6.0-8.3)
[2021-07-16 21:30] LABS: AMMONIA 64 umol/L (11-32)
[2021-07-17] MEDS ORDERED: MAGNESIUM 2GM PREMIX 50ML 50 ML IV SCH (00:45)
[2021-07-17] MEDS ORDERED: KCL 20 MEQ ERTAB PO ONE (01:00)
[2021-07-17] MEDS ORDERED: LORAZEPAM 2 MG/ML 1 ML VIAL IVP ONE (01:00)
[2021-07-17 02:11] VITALS: BP 153/97
== END 2021-07-17 03:40 | disposition short-term general hospital (02) ==
LOC: EDH 20:19
DX: U07.1 COVID-19 (principal); K70.9 Alcoholic liver disease, unspecified; K72.00 Acute and subacute hepatic failure without coma; R56.9 Unspecified convulsions; R41.82 Altered mental status, unspecified; I10 Essential (primary) hypertension; Z79.1 Long term (current) use of non-steroidal anti-inflammatories (NSAID); Z79.899 Other long term (current) drug therapy
CPT/HCPCS: 36415 ×2; 70450; 71045; 80053 ×2; 81001; 82140 ×2; 82150 ×2; 83690; 83735; 85025 ×2; 85610 ×2; 85730; 87635; 93005; 96361; 96365; 96366; 96375 ×2; 99283; 99285; C9803; J2060; J3411; J3475; J7030; J7040

== ENCOUNTER 2021-09-26 14:33 | Emergency (ER) | payer OTHER, MEDICARE ==
[~2021-09-26] VITALS: Ht 165.1 cm; Wt 72.6 kg
[2021-09-26] MEDS ORDERED: KETOROLAC 60 MG VIAL (30MG/ML) IM ONE (15:00)
[2021-09-26] MEDS ORDERED: KETOROLAC 60 MG VIAL (30MG/ML) ONE (16:21)
[2021-09-26] MEDS ORDERED: NAPR-1084 PO (17:19)
[2021-09-26 17:25] VITALS: BP 141/65
== END 2021-09-26 17:32 | disposition home or self-care (01) ==
LOC: EDH 14:33
DX: S42.291A Other displaced fracture of upper end of right humerus, initial encounter for closed fracture (principal); I10 Essential (primary) hypertension; Z79.899 Other long term (current) drug therapy; X58.XXXA Exposure to other specified factors, initial encounter; Y93.89 Activity, other specified; Y92.89 Other specified places as the place of occurrence of the external cause; Y99.8 Other external cause status
CPT/HCPCS: 29105; 73030; 73060; 73090; 73100; 96372; 99284; J1885

== ENCOUNTER 2021-12-18 18:25 | Observation (INO) | payer OTHER, MEDICARE ==
[~2021-12-18] VITALS: Ht 165.1 cm; Wt 67.2 kg
[~2021-12-18 18:25] MED LIST changes: +NAPR-1084 PO
[2021-12-18 18:56] LABS: BASOPHILS % (AUTO) 0.8 % (0.0-5.0); EOSINOPHILS % (AUTO) 1.8 % (0.0-8.0); HEMATOCRIT 36.9 % (42-54); LYMPHOCYTES % (AUTO) 13.9 % (21.0-51.0); MEAN CORPUSCULAR HGB CONC 34.7 g/dL (32.0-36.0); MEAN CORPUSCULAR VOLUME 98.1 fL (79-99); MONOCYTES % (AUTO) 13.1 % (3.0-13.0); NEUTROPHILS % (AUTO) 70.1 % (40.0-77.0); PLATELET COUNT (AUTO) 35 K/uL (130-400); RED BLOOD CELL COUNT(AUTO) 3.76 MIL/uL (4.50-6.20); RED CELL DISTRIBUTION WIDTH 13.2 % (11.0-15.5); WHITE BLOOD COUNT (AUTO) 3.8 K/uL (4.8-10.8)
[2021-12-18 19:05] LABS: APPEARANCE,URINE Clear (CLEAR); BILIRUBIN,URINE Negative (NEGATIVE); COLOR,URINE Yellow (YELLOW); GLUCOSE, URINE (UA) Negative (NEGATIVE); KETONES,URINE Negative (NEGATIVE); LEUKOCYTE ESTERASE ,URINE Trace (NEGATIVE); NITRATE,URINE Negative (NEGATIVE); OCCULT BLOOD,URINE Negative (NEGATIVE); PROTEIN,URINE Negative (NEGATIVE)
[2021-12-18 19:05] LABS: INR 1.28 (0.85-1.15); PROTHROMBIN TIME 13.6 SEC (9.6-11.6)
[2021-12-18 19:06] LABS: PARTIAL THROMBOPLASTIN TIME 31.3 SEC (26.3-35.5)
[2021-12-18 19:13] LABS: ALBUMIN 2.9 g/dL (3.5-5.0); BILIRUBIN,TOTAL 3.2 mg/dL (0.2-1.0); CREATININE 0.8 mg/dL (0.5-1.5); TOTAL PROTEIN, SERUM 7.5 g/dL (6.0-8.3)
[2021-12-18 19:13] LABS: AMPHET/METH SCREEN,URINE NEGATIVE (NEGATIVE); BARBITURATE SCREEN, URINE NEGATIVE (NEGATIVE); BENZODIAZEPINES SCREEN,URINE NEGATIVE (NEGATIVE); CANNABINOID SCREEN,URINE POSITIVE (NEGATIVE); COCAINE SCREEN,URINE NEGATIVE (NEGATIVE); OPIATE SCREEN,URINE NEGATIVE (NEGATIVE); PHENCYCLIDINE SCREEN,URINE NEGATIVE (NEGATIVE)
[2021-12-18 19:16] LABS: POTASSIUM 2.6 mmol/L (3.5-5.1)
[2021-12-18 19:19] LABS: BACTERIA,URINE Few /HPF (None Seen); MUCUS,URINE Rare LPF (None Seen); RBC,URINE 0-1 /HPF (0-1); SQUAMOUS EPITHELIAL CELL,UR Few /HPF (0-2)
[2021-12-18] MEDS ORDERED: LORAZEPAM 2 MG/ML 1 ML VIAL IVP ONE (19:30)
[2021-12-18] MEDS ORDERED: ONDANSETRON 4MG INJ IVP ONE (19:30)
[2021-12-18] MEDS ORDERED: POTASSIUM CHLORIDE 20MEQ/10ML 10 MEQ in 0.9%NACL 50ML 50 ML IV SCH (19:30)
[2021-12-18] MEDS ORDERED: POTASSIUM CHLORIDE 10MEQ/100ML 100 ML IV SCH (20:00)
[2021-12-18] MEDS ORDERED: M.V.I. IV [ADULT] 10 ML, FOLIC ACID 1 MG, THIAMINE HCL 100 MG in 0.9%NACL 1000ML 1,000 ML IV ONE (20:00)
[2021-12-18] MEDS: KCL IV SCH (20:11)
[2021-12-18] MEDS: NS IV SCH (20:11)
[2021-12-18] MEDS ORDERED: MAGNESIUM 2GM PREMIX 50ML 50 ML IV PRN (20:30)
[2021-12-18] MEDS ORDERED: POTASSIUM CHLORIDE 10% ELIXIR 20 MEQ/15 ML UDCUP PO PRN (20:30)
[2021-12-18] MEDS ORDERED: ONDANSETRON 4MG INJ IV PRN (20:30)
[2021-12-18] MEDS ORDERED: POTASSIUM CHLORIDE 20MEQ/100ML 100 ML IV PRN (20:30)
[2021-12-18] MEDS ORDERED: PHARMACY COMMUNICATION MISC PRN (20:30)
[2021-12-18] MEDS ORDERED: LIDOCAINE HCL-MPF 1% 2ML VIAL IV PRN (20:30)
[2021-12-18] MEDS: FAMOTIDINE 20MG VIAL IV SCH (21:08)
[2021-12-18] MEDS: LORAZEPAM 2 MG/ML 1 ML VIAL IVP PRN (22:14)
[2021-12-18 23:15] VITALS: BP 166/97
[2021-12-19] MEDS ORDERED: CLONIDINE HCL 0.1 MG TABLET PO ONE (01:00)
[2021-12-19] MEDS: LORAZEPAM 2 MG/ML 1 ML VIAL IVP PRN (02:37)
[2021-12-19 03:29] VITALS: BP 126/85
[2021-12-19] MEDS: NS IV SCH ×3 (04:00→08:00)
[2021-12-19] MEDS: KCL IV SCH ×3 (04:00→08:00)
[2021-12-19 05:26] LABS: BASOPHILS % (AUTO) 0.5 % (0.0-5.0); EOSINOPHILS % (AUTO) 2.1 % (0.0-8.0); HEMATOCRIT 37.9 % (42-54); LYMPHOCYTES % (AUTO) 15.3 % (21.0-51.0); MEAN CORPUSCULAR HEMOGLOBIN 34.6 pg (27.0-33.0); MEAN CORPUSCULAR HGB CONC 34.3 g/dL (32.0-36.0); MEAN CORPUSCULAR VOLUME 100.8 fL (79-99); MONOCYTES % (AUTO) 12.7 % (3.0-13.0); NEUTROPHILS % (AUTO) 68.9 % (40.0-77.0); PLATELET COUNT (AUTO) 35 K/uL (130-400); RED BLOOD CELL COUNT(AUTO) 3.76 MIL/uL (4.50-6.20); RED CELL DISTRIBUTION WIDTH 13.4 % (11.0-15.5); WHITE BLOOD COUNT (AUTO) 3.9 K/uL (4.8-10.8)
[2021-12-19 05:31] LABS: CREATININE 0.8 mg/dL (0.5-1.5); MAGNESIUM 2.1 mg/dL (1.80-2.40); PHOSPHORUS 2.8 mg/dL (2.5-4.9); POTASSIUM 3.1 mmol/L (3.5-5.1)
[2021-12-19 08:00] VITALS: BP 154/87
[2021-12-19] MEDS: LISINOPRIL 20 MG TABLET PO SCH (08:43)
[2021-12-19] MEDS: KCL 20 MEQ ERTAB PO PRN ×3 (08:43→17:03)
[2021-12-19] MEDS: FAMOTIDINE 20MG VIAL IV SCH ×2 (08:43→21:17)
[2021-12-19] MEDS ORDERED: M.V.I. IV [ADULT] 10 ML, FOLIC ACID 1 MG, THIAMINE HCL 100 MG in 0.9%NACL 1000ML 1,000 ML IV SCH (11:00)
[2021-12-19 12:00] VITALS: BP 146/84
[2021-12-19 16:00] VITALS: BP 143/82
[2021-12-19 20:00] VITALS: BP 151/86
[2021-12-20] VITALS: BP 157/84
[2021-12-20 04:00] VITALS: BP 151/80
[2021-12-20 05:30] LABS: BASOPHILS % (AUTO) 0.8 % (0.0-5.0); HEMATOCRIT 36.8 % (42-54); MEAN CORPUSCULAR HEMOGLOBIN 33.9 pg (27.0-33.0); MEAN CORPUSCULAR HGB CONC 33.7 g/dL (32.0-36.0); MEAN CORPUSCULAR VOLUME 100.5 fL (79-99); MONOCYTES % (AUTO) 14.2 % (3.0-13.0); NEUTROPHILS % (AUTO) 65.7 % (40.0-77.0); PLATELET COUNT (AUTO) 35 K/uL (130-400); RED BLOOD CELL COUNT(AUTO) 3.66 MIL/uL (4.50-6.20); RED CELL DISTRIBUTION WIDTH 13.4 % (11.0-15.5); WHITE BLOOD COUNT (AUTO) 3.8 K/uL (4.8-10.8)
[2021-12-20 05:57] LABS: INR 1.37 (0.85-1.15); PROTHROMBIN TIME 14.5 SEC (9.6-11.6)
[2021-12-20 05:58] LABS: PARTIAL THROMBOPLASTIN TIME 33.3 SEC (26.3-35.5)
[2021-12-20 06:07] LABS: ALBUMIN 2.5 g/dL (3.5-5.0); BILIRUBIN,TOTAL 3.6 mg/dL (0.2-1.0); CREATININE 0.8 mg/dL (0.5-1.5); MAGNESIUM 1.7 mg/dL (1.80-2.40); POTASSIUM 3.3 mmol/L (3.5-5.1); TOTAL PROTEIN, SERUM 6.6 g/dL (6.0-8.3)
[2021-12-20 08:00] VITALS: BP 164/92
[2021-12-20] MEDS: FAMOTIDINE 20MG VIAL IV SCH (09:36)
[2021-12-20] MEDS: LISINOPRIL 20 MG TABLET PO SCH (09:37)
[2021-12-20] MEDS ORDERED: CHLORDIAZEPOXIDE HCL 25 MG CAP PO SCH (10:30)
[2021-12-20 12:00] VITALS: BP 151/80
[2021-12-20] MEDS ORDERED: PROPRANOLOL HCL 20 MG TAB PO SCH (12:00)
[2021-12-20] MEDS ORDERED: CARV3.1262 PO (12:03)
[2021-12-20] MEDS ORDERED: LISI20TA24 PO (12:03)
[2021-12-20] MEDS ORDERED: FOLI1 PO (12:03)
[2021-12-20] MEDS ORDERED: PANT40TA54 PO (12:03)
[2021-12-20] MEDS ORDERED: KCL 20 MEQ ERTAB PO SCH (12:30)
[2021-12-21] MEDS ORDERED: THIAMINE HCL 100 MG TABLET PO SCH (09:00)
[2021-12-21] MEDS ORDERED: FOLIC ACID 1 MG TABLET PO SCH (09:00)
[2021-12-21] MEDS ORDERED: MULTIVITAMIN WITH MINERALS TABLET PO SCH (09:00)
== END 2021-12-20 14:20 | disposition home or self-care (01) ==
LOC: EDH 18:25 → EDHIP 20:19 → 3DH 23:37
PROVIDERS: ADMIT Internal Medicine; ATTEND Internal Medicine
DX: E87.6 Hypokalemia (principal); F10.239 Alcohol dependence with withdrawal, unspecified; F10.229 Alcohol dependence with intoxication, unspecified; D69.6 Thrombocytopenia, unspecified; D68.4 Acquired coagulation factor deficiency; K74.60 Unspecified cirrhosis of liver; E83.42 Hypomagnesemia; D68.9 Coagulation defect, unspecified; I10 Essential (primary) hypertension; D61.818 Other pancytopenia; F41.8 Other specified anxiety disorders; F12.90 Cannabis use, unspecified, uncomplicated; F17.210 Nicotine dependence, cigarettes, uncomplicated; Z79.899 Other long term (current) drug therapy
CPT/HCPCS: 36415 ×3; 73030; 76700; 80048; 80053 ×2; 80305; 81001; 82140; 82306; 82550; 83735 ×3; 83874; 84100; 84484; 85025 ×3; 85610 ×2; 85730 ×2; 93005; 96365; 96366; 96368; 96375; 96376 ×3; 97039 ×2; 97116; 97161; 99284; G0378 ×40; J2060 ×3; J2405 ×2; J3411 ×3; J3475; J3480; J3490 ×6; J7030 ×3

== ENCOUNTER 2022-06-01 09:20 | Emergency (ER) | payer OTHER, MEDICARE ==
[~2022-06-01] VITALS: Ht 165.1 cm; Wt 67.1 kg
[~2022-06-01 09:20] MED LIST changes: -AMLO2.5T4 PO; -BIOF1TAB8 PO; -BIOT10005 PO; +FOLI1 PO; -GREEN VIBRANCE; -LEVE-43 PO; -LIB25 PO; -LIDOP TP; -LISI10TA24 PO; +LISI20TA24 PO; -LIVER AID PO; -MELO7.5T12 PO; -NAPR-1084 PO; -ORPH-43 PO; -UBID200C37 PO; -[UNRECOGNIZED DRUG - OTHER] PO
[2022-06-01 10:05] LABS: BASOPHILS % (AUTO) 0.7 % (0.0-5.0); EOSINOPHILS % (AUTO) 0.9 % (0.0-8.0); HEMATOCRIT 38.2 % (42-54); LYMPHOCYTES % (AUTO) 21.1 % (21.0-51.0); MEAN CORPUSCULAR HEMOGLOBIN 34.1 pg (27.0-33.0); MEAN CORPUSCULAR HGB CONC 36.6 g/dL (32.0-36.0); MEAN CORPUSCULAR VOLUME 93.2 fL (79-99); MONOCYTES % (AUTO) 16.9 % (3.0-13.0); NEUTROPHILS % (AUTO) 60.4 % (40.0-77.0); PLATELET COUNT (AUTO) 69 K/uL (130-400); RED CELL DISTRIBUTION WIDTH 12.9 % (11.0-15.5); WHITE BLOOD COUNT (AUTO) 4.6 K/uL (4.8-10.8)
[2022-06-01 10:15] LABS: CREATININE 0.9 mg/dL (0.5-1.5); POTASSIUM 3.2 mmol/L (3.5-5.1)
[2022-06-01 10:21] LABS: ALBUMIN 3.6 g/dL (3.5-5.0); TOTAL PROTEIN, SERUM 8.5 g/dL (6.0-8.3)
[2022-06-01 10:45] LABS: APPEARANCE,URINE CLEAR (CLEAR); BILIRUBIN,URINE NEGATIVE (NEGATIVE); COLOR,URINE LIGHT-YELLOW (YELLOW); GLUCOSE, URINE (UA) NEGATIVE (NEGATIVE); KETONES,URINE NEGATIVE (NEGATIVE); LEUKOCYTE ESTERASE ,URINE NEGATIVE Leu/uL (NEGATIVE); NITRATE,URINE NEGATIVE (NEGATIVE); OCCULT BLOOD,URINE NEGATIVE (NEGATIVE); PROTEIN,URINE NEGATIVE (NEGATIVE); UROBILINOGEN,URINE 3 mg/dL (0.2-1.0)
[2022-06-01 10:47] LABS: BASOPHILS % (MANUAL) 1 % (0-2); LYMPHOCYTES % (MANUAL) 25 % (22-44); MAN.DIFF COMMENT-IMPRESSION MANUAL DIFFERENTIAL; MONOCYTES % (MANUAL) 15 % (2-9); SEGMENTED NEUTROPHILS % 59 % (40-70)
[2022-06-01 10:48] LABS: PLATELET MORPHOLOGY COMMENT DECREASED
[2022-06-01 10:50] LABS: WBC,URINE 0-1 /HPF (0-1)
[2022-06-01 10:53] LABS: INR 1.29 (0.85-1.15); PROTHROMBIN TIME 13.9 SEC (9.6-11.6)
[2022-06-01 10:54] LABS: PARTIAL THROMBOPLASTIN TIME 30.5 SEC (26.3-35.5)
[2022-06-01] MEDS ORDERED: CHLORDIAZEPOXIDE HCL 25 MG CAP PO ONE (11:45)
[2022-06-01] MEDS ORDERED: CHLO10CA7 PO (13:43)
[2022-06-01] MEDS ORDERED: DIAZEPAM 5 MG TABLET PO ONE (13:45)
[2022-06-01 13:50] VITALS: BP 142/76
[2022-06-01] MEDS ORDERED: POTASSIUM BICARB/CIT AC 25 MEQ TABLET.EFF PO ONE (14:00)
== END 2022-06-01 14:50 | disposition home or self-care (01) ==
LOC: EDH 09:20
DX: F10.230 Alcohol dependence with withdrawal, uncomplicated (principal); E87.6 Hypokalemia; E87.1 Hypo-osmolality and hyponatremia; K70.9 Alcoholic liver disease, unspecified; F41.9 Anxiety disorder, unspecified; I10 Essential (primary) hypertension; Z79.899 Other long term (current) drug therapy; Y90.9 Presence of alcohol in blood, level not specified
CPT/HCPCS: 36415; 80053; 81001; 82140; 84484; 85025; 85610; 85730; 93005

== ENCOUNTER 2022-07-21 23:57 | Emergency (ER) | payer OTHER, MEDICARE ==
[~2022-07-21] VITALS: Ht 152.4 cm; Wt 65.8 kg
[~2022-07-21 23:57] MED LIST changes: +CHLO10CA7 PO
[2022-07-22] MEDS ORDERED: 0.9%NACL 1000ML 1,000 ML IV ONE (01:55)
[2022-07-22] MEDS ORDERED: LORAZEPAM 2 MG/ML 1 ML VIAL ONE (01:55)
[2022-07-22] MEDS ORDERED: 0.9%NACL 1000ML 1,000 ML IV SCH (02:00)
[2022-07-22] MEDS ORDERED: LORAZEPAM 2 MG/ML 1 ML VIAL IVP ONE (02:00)
[2022-07-22 02:23] LABS: CREATININE 1.1 mg/dL (0.5-1.5); POTASSIUM 3.2 mmol/L (3.5-5.1)
[2022-07-22 02:26] LABS: ALBUMIN 3.8 g/dL (3.5-5.0); MAGNESIUM 1.8 mg/dL (1.80-2.40); TOTAL PROTEIN, SERUM 8.6 g/dL (6.0-8.3)
[2022-07-22 02:39] LABS: BASOPHILS % (AUTO) 0.4 % (0.0-5.0); EOSINOPHILS % (AUTO) 0.2 % (0.0-8.0); HEMATOCRIT 35.3 % (42-54); LYMPHOCYTES % (AUTO) 16.4 % (21.0-51.0); MEAN CORPUSCULAR HEMOGLOBIN 34.3 pg (27.0-33.0); MEAN CORPUSCULAR HGB CONC 36.3 g/dL (32.0-36.0); MEAN CORPUSCULAR VOLUME 94.6 fL (79-99); MONOCYTES % (AUTO) 11.4 % (3.0-13.0); NEUTROPHILS % (AUTO) 71.4 % (40.0-77.0); PLATELET COUNT (AUTO) 59 K/uL (130-400); RED BLOOD CELL COUNT(AUTO) 3.73 MIL/uL (4.50-6.20); RED CELL DISTRIBUTION WIDTH 13.1 % (11.0-15.5); WHITE BLOOD COUNT (AUTO) 4.6 K/uL (4.8-10.8)
[2022-07-22] MEDS ORDERED: POTASSIUM BICARB/CIT AC 25 MEQ TABLET.EFF ONE (02:42)
[2022-07-22 03:10] LABS: PLATELET MORPHOLOGY COMMENT DECREASED
[2022-07-22 05:04] VITALS: BP 132/74
== END 2022-07-22 05:59 | disposition home or self-care (01) ==
LOC: EDH 23:57
DX: F10.230 Alcohol dependence with withdrawal, uncomplicated (principal); K70.9 Alcoholic liver disease, unspecified; F41.9 Anxiety disorder, unspecified; I10 Essential (primary) hypertension; Z79.899 Other long term (current) drug therapy
CPT/HCPCS: 99283; 83735; 80053; 85025; 36415; 96374; 96361; J7030; J2060

== ENCOUNTER 2022-09-09 03:18 | Emergency (ER) | payer MEDICARE ==
[~2022-09-09] VITALS: Ht 165.1 cm; Wt 68.0 kg
[2022-09-09] MEDS ORDERED: LORAZEPAM 2 MG/ML 1 ML VIAL IVP ONE (04:30)
[2022-09-09 04:34] LABS: BASOPHILS % (AUTO) 0.5 % (0.0-5.0); HEMATOCRIT 32.9 % (42-54); LYMPHOCYTES % (AUTO) 8.6 % (21.0-51.0); MEAN CORPUSCULAR HEMOGLOBIN 34.8 pg (27.0-33.0); MEAN CORPUSCULAR HGB CONC 36.2 g/dL (32.0-36.0); MEAN CORPUSCULAR VOLUME 96.2 fL (79-99); MONOCYTES % (AUTO) 7.5 % (3.0-13.0); NEUTROPHILS % (AUTO) 83.2 % (40.0-77.0); PLATELET COUNT (AUTO) 95 K/uL (130-400); RED BLOOD CELL COUNT(AUTO) 3.42 MIL/uL (4.50-6.20); RED CELL DISTRIBUTION WIDTH 13.2 % (11.0-15.5); WHITE BLOOD COUNT (AUTO) 6.4 K/uL (4.8-10.8)
[2022-09-09 04:44] LABS: AMPHET/METH SCREEN,URINE NEGATIVE (NEGATIVE); BARBITURATE SCREEN, URINE NEGATIVE (NEGATIVE); BENZODIAZEPINES SCREEN,URINE NEGATIVE (NEGATIVE); CANNABINOID SCREEN,URINE POSITIVE (NEGATIVE); COCAINE SCREEN,URINE NEGATIVE (NEGATIVE); OPIATE SCREEN,URINE NEGATIVE (NEGATIVE); PHENCYCLIDINE SCREEN,URINE NEGATIVE (NEGATIVE)
[2022-09-09 04:53] LABS: ALBUMIN 3.5 g/dL (3.5-5.0); CREATININE 1.1 mg/dL (0.5-1.5); POTASSIUM 3.2 mmol/L (3.5-5.1); TOTAL PROTEIN, SERUM 8.5 g/dL (6.0-8.3)
[2022-09-09 05:26] VITALS: BP 156/91
== END 2022-09-09 06:03 | disposition home or self-care (01) ==
LOC: EDH 03:18
DX: F43.0 Acute stress reaction (principal); F41.9 Anxiety disorder, unspecified; F43.9 Reaction to severe stress, unspecified; F41.8 Other specified anxiety disorders; F10.129 Alcohol abuse with intoxication, unspecified; Z79.899 Other long term (current) drug therapy
CPT/HCPCS: 99284; 84484; 80053; 80305; 85025; 36415; 96374; 93005; J2060

== ENCOUNTER 2022-11-21 01:56 | Emergency (ER) | payer OTHER, MEDICARE ==
[~2022-11-21] VITALS: Ht 165.1 cm; Wt 68.0 kg
[2022-11-21] MEDS ORDERED: LORAZEPAM 2 MG/ML 1 ML VIAL IVP ONE ×4 (02:00→03:30)
[2022-11-21 02:19] LABS: ABG BASE EXCESS 5.9 mmol/L (-2.0-3.0); ABG HCO3 22.6 mmol/L (21.0-28.0); ABG OXYGEN SATURATION 99.1 % (95.0-99.0); ABG PCO2 17 mmHg (35-48)
[2022-11-21] MEDS ORDERED: 0.9%NACL 1000ML 1,000 ML IV ONE (02:22)
[2022-11-21] MEDS ORDERED: THIAMINE HCL 100 MG/ML 2ML VIAL ONE (02:22)
[2022-11-21] MEDS ORDERED: M.V.I. IV [ADULT] 10 ML VIAL IV ONE (02:24)
[2022-11-21 02:25] LABS: BASOPHILS % (AUTO) 0.8 % (0.0-5.0); EOSINOPHILS % (AUTO) 0.8 % (0.0-8.0); HEMATOCRIT 35.8 % (42-54); LYMPHOCYTES % (AUTO) 36.8 % (21.0-51.0); MEAN CORPUSCULAR HGB CONC 35.5 g/dL (32.0-36.0); MEAN CORPUSCULAR VOLUME 95.7 fL (79-99); MONOCYTES % (AUTO) 13.8 % (3.0-13.0); NEUTROPHILS % (AUTO) 47.6 % (40.0-77.0); PLATELET COUNT (AUTO) 79 K/uL (130-400); RED BLOOD CELL COUNT(AUTO) 3.74 MIL/uL (4.50-6.20); RED CELL DISTRIBUTION WIDTH 13.3 % (11.0-15.5); WHITE BLOOD COUNT (AUTO) 4.8 K/uL (4.8-10.8)
[2022-11-21 02:36] LABS: CREATININE 1.1 mg/dL (0.5-1.5); POTASSIUM 3.2 mmol/L (3.5-5.1)
[2022-11-21 02:41] LABS: ALBUMIN 3.4 g/dL (3.5-5.0); MAGNESIUM 1.4 mg/dL (1.80-2.40); TOTAL PROTEIN, SERUM 7.6 g/dL (6.0-8.3)
[2022-11-21] MEDS ORDERED: MAGNESIUM 4GM PREMIX 100ML 100 ML IV PRN (03:30)
[2022-11-21] MEDS ORDERED: MAGNESIUM 2GM PREMIX 50ML 50 ML IV SCH (03:30)
[2022-11-21] MEDS ORDERED: POTASSIUM CHLORIDE 10% ELIXIR 20 MEQ/15 ML UDCUP PO ONE (03:30)
[2022-11-21] MEDS ORDERED: MAGNESIUM 2GM PREMIX 50ML 50 ML IV ONE (03:30)
[2022-11-21 04:08] LABS: APPEARANCE,URINE CLEAR (CLEAR); BILIRUBIN,URINE NEGATIVE (NEGATIVE); COLOR,URINE COLORLESS (YELLOW); GLUCOSE, URINE (UA) NEGATIVE (NEGATIVE); KETONES,URINE NEGATIVE (NEGATIVE); LEUKOCYTE ESTERASE ,URINE NEGATIVE Leu/uL (NEGATIVE); NITRATE,URINE NEGATIVE (NEGATIVE); OCCULT BLOOD,URINE NEGATIVE (NEGATIVE); PH,URINE 7.5 (5.0-8.0); PROTEIN,URINE NEGATIVE (NEGATIVE); UROBILINOGEN,URINE 0.2 mg/dL (0.2-1.0)
[2022-11-21 06:22] VITALS: BP 135/81
[2022-11-21] MEDS ORDERED: M.V.I. IV [ADULT] 10 ML, FOLIC ACID 1 MG, THIAMINE HCL 100 MG in 0.9%NACL 1000ML 1,000 ML IV SCH (09:00)
[2022-11-28] MEDS ORDERED: ESCI20TA38 PO (23:37)
== END 2022-11-21 06:30 | disposition home or self-care (01) ==
LOC: EDH 01:56
DX: F10.239 Alcohol dependence with withdrawal, unspecified (principal); E83.42 Hypomagnesemia; E87.6 Hypokalemia; F32.A Depression, unspecified; F41.9 Anxiety disorder, unspecified; I10 Essential (primary) hypertension; Z79.899 Other long term (current) drug therapy; Y90.2 Blood alcohol level of 40-59 mg/100 ml
CPT/HCPCS: 99284; 96365; 96366; 96375; 83735; 84484; 80053; 82803; 82140; 85025; 81003; 36415; 96368; 96376; 36600; J3475; J7030; J3411; J2060 ×2

== ENCOUNTER 2022-12-11 17:21 | Emergency (ER) | payer OTHER, MEDICARE ==
[~2022-12-11] VITALS: Ht 165.1 cm; Wt 68.0 kg
[~2022-12-11 17:21] MED LIST changes: +AMOX1TAB16 PO; -CHLO10CA7 PO; -ESCI-8 PO; +ESCI20TA38 PO; -FERR-72 PO; +LEVO5TAB13 PO; -LISI20TA24 PO; +LOSA25TA41 PO; -MELA10CA2 PO; -PANT40TA54 PO; +THIA100T91 PO
[2022-12-11 19:38] VITALS: BP 154/82
== END 2022-12-11 21:08 | disposition home or self-care (01) ==
LOC: EDH 17:21
DX: S41.111A Laceration without foreign body of right upper arm, initial encounter (principal); S41.112A Laceration without foreign body of left upper arm, initial encounter; F41.9 Anxiety disorder, unspecified; F32.A Depression, unspecified; I10 Essential (primary) hypertension; W19.XXXA Unspecified fall, initial encounter; Y93.89 Activity, other specified; Y92.89 Other specified places as the place of occurrence of the external cause; Y99.8 Other external cause status
CPT/HCPCS: 73090

== ENCOUNTER → 2023-01-31 | Outpatient (CLI) | payer OTHER, MEDICARE ==
[2023-01-31 09:48] LABS: CREATININE 0.9 mg/dL (0.5-1.5)
== END | disposition home or self-care (01) ==
LOC: LAB 08:56
PROVIDERS: ATTEND Internal Medicine Gastroenterology
DX: R77.2 Abnormality of alphafetoprotein (principal)
CPT/HCPCS: 36415; 82565; 84520

== ENCOUNTER 2023-06-10 21:17 | Observation (INO) | payer OTHER, MEDICARE ==
[~2023-06-10] VITALS: Ht 152.4 cm; Wt 64.8 kg
[~2023-06-10 21:17] MED LIST changes: +ASHW500C PO; +METR-172 PO; +PANT40TA PO; +TAMS-1 PO; +VENL75CA97 PO; +[UNRECOGNIZED DRUG - OTHER] PO
[2023-06-10 21:53] LABS: BASOPHILS # (AUTO) 0.03 K/uL (0.00-0.20); BASOPHILS % (AUTO) 0.6 % (0.0-5.0); EOSINOPHILS # (AUTO) 0.13 K/uL (0.00-0.70); EOSINOPHILS % (AUTO) 2.7 % (0.0-8.0); HEMATOCRIT 36.2 % (42-54); IMMATURE GRANULOCYTE ABSOLUTE 0.01 K/uL (0-1); LYMPHOCYTES # (AUTO) 1.6 K/uL (1.0-4.8); LYMPHOCYTES % (AUTO) 33.7 % (21.0-51.0); MEAN CORPUSCULAR HEMOGLOBIN 35.4 pg (27.0-33.0); MEAN CORPUSCULAR HGB CONC 36.7 g/dL (32.0-36.0); MEAN CORPUSCULAR VOLUME 96.3 fL (79-99); MONOCYTES # (AUTO) 0.6 K/uL (0.1-1.0); MONOCYTES % (AUTO) 12.3 % (3.0-13.0); NEUTROPHILS # (AUTO) 2.4 K/uL (1.8-7.7); NEUTROPHILS % (AUTO) 50.5 % (40.0-77.0); PLATELET COUNT (AUTO) 96 K/uL (130-400); RED BLOOD CELL COUNT(AUTO) 3.76 MIL/uL (4.50-6.20); WHITE BLOOD COUNT (AUTO) 4.8 K/uL (4.8-10.8)
[2023-06-10] MEDS ORDERED: M.V.I. IV [ADULT] 10 ML, FOLIC ACID 1 MG, THIAMINE HCL 100 MG in 0.9%NACL 1000ML 1,000 ML IV ONE (22:00)
[2023-06-10] MEDS ORDERED: ASPIRIN 325MG TAB PO ONE (22:00)
[2023-06-10] MEDS ORDERED: LORAZEPAM 2 MG TABLET PO ONE (22:00)
[2023-06-10] MEDS ORDERED: LABETALOL 20MG VIAL IV ONE (22:00)
[2023-06-10] MEDS ORDERED: HYDROXYZINE 25 MG TABLET PO ONE (22:00)
[2023-06-10 22:04] LABS: CREATININE 0.9 mg/dL (0.5-1.5); POTASSIUM 3.1 mmol/L (3.5-5.1)
[2023-06-10] MEDS ORDERED: THIAMINE HCL 100 MG/ML 2ML VIAL ONE (22:08)
[2023-06-10] MEDS ORDERED: M.V.I. IV [ADULT] 10 ML VIAL IV ONE (22:09)
[2023-06-10 22:14] LABS: B-TYPE NATRIURETIC PEPTIDE 109 pg/mL (0-100)
[2023-06-10 22:15] LABS: MAGNESIUM 1.4 mg/dL (1.80-2.40)
[2023-06-10] MEDS ORDERED: LORAZEPAM 1 MG TABLET ONE (22:26)
[2023-06-10] MEDS ORDERED: COMPOUND IV MISC 1 EACH IVSOLN MISC ONE (22:30)
[2023-06-10 22:55] VITALS: PULSE 68
[2023-06-11] VITALS (10 sets, daily range): BP systolic 123–180; BP diastolic 69–84; PULSE 62–74; RESP 16–20; O2SAT 96–100
[2023-06-11] MEDS ORDERED: CLONIDINE HCL 0.1 MG TABLET PO PRN (01:00)
[2023-06-11] MEDS ORDERED: LACTULOSE 20 GM/30 ML UDCUP PO PRN (01:00)
[2023-06-11] MEDS ORDERED: ONDANSETRON 4MG INJ IVP PRN (01:00)
[2023-06-11] MEDS ORDERED: ACETAMINOPHEN 650 MG SUPPOSITORY RC PRN (01:00)
[2023-06-11] MEDS ORDERED: HYDRALAZINE 20MG/ML VIAL IV PRN (01:00)
[2023-06-11] MEDS ORDERED: ACETAMINOPHEN 325 MG TAB PO PRN (01:00)
[2023-06-11] MEDS ORDERED: TEMAZEPAM 15 MG CAPSULE PO PRN (01:00)
[2023-06-11] MEDS ORDERED: LABETALOL 20MG SYG IV PRN (01:00)
[2023-06-11] MEDS: 0.9%NACL 1000ML 1,000 ML IV SCH ×2 (01:12→20:58)
[2023-06-11 01:37] LABS: HEMATOCRIT 35.9 % (42-54); MEAN CORPUSCULAR HEMOGLOBIN 35.4 pg (27.0-33.0); MEAN CORPUSCULAR HGB CONC 36.2 g/dL (32.0-36.0); MEAN CORPUSCULAR VOLUME 97.8 fL (79-99); RED BLOOD CELL COUNT(AUTO) 3.67 MIL/uL (4.50-6.20); RED CELL DISTRIBUTION WIDTH 12.8 % (11.0-15.5); WHITE BLOOD COUNT (AUTO) 5.6 K/uL (4.8-10.8)
[2023-06-11 02:02] LABS: CREATININE 0.8 mg/dL (0.5-1.5); MAGNESIUM 1.5 mg/dL (1.80-2.40); PHOSPHORUS 3.3 mg/dL (2.5-4.9); POTASSIUM 3.2 mmol/L (3.5-5.1)
[2023-06-11] MEDS ORDERED: [UNRECOGNIZED DRUG - OTHER] PO (05:57)
[2023-06-11] MEDS ORDERED: MELA10TA2 PO (05:57)
[2023-06-11] MEDS ORDERED: CARV6.25 PO (05:57)
[2023-06-11] MEDS ORDERED: prevagen PO (05:57)
[2023-06-11] MEDS ORDERED: BACL10TA PO (05:57)
[2023-06-11] MEDS ORDERED: KRIL1CAP35 PO (05:57)
[2023-06-11] MEDS ORDERED: ACET-66 PO (05:57)
[2023-06-11] MEDS ORDERED: MULT-1289 PO (05:57)
[2023-06-11] MEDS ORDERED: GABA-529 PO (05:57)
[2023-06-11] MEDS ORDERED: milk thistle PO (05:57)
[2023-06-11] MEDS: INSULIN HUMULIN R 100 UNIT/ML 3ML SQ SCH ×4 (06:03→20:47)
[2023-06-11 08:17] LABS: INR 1.32 (0.85-1.15)
[2023-06-11 08:18] LABS: PARTIAL THROMBOPLASTIN TIME 34.3 SEC (26.3-35.5)
[2023-06-11 08:23] LABS: CREATININE 0.9 mg/dL (0.5-1.5); MAGNESIUM 1.5 mg/dL (1.80-2.40); POTASSIUM 3.5 mmol/L (3.5-5.1)
[2023-06-11] MEDS: ASPIRIN 81MG CHEW TAB PO SCH (09:08)
[2023-06-11] MEDS ORDERED: MAGNESIUM 2GM PREMIX 50ML 50 ML IV PRN (17:30)
[2023-06-11] MEDS ORDERED: POTASSIUM CHLORIDE 20MEQ/100ML 100 ML IV PRN (17:30)
[2023-06-11] MEDS ORDERED: PHARMACY COMMUNICATION MISC SCH (21:00)
[2023-06-11] MEDS ORDERED: SIMVASTATIN 20 MG TABLET PO SCH (21:00)
[2023-06-12 02:56] VITALS: BP 121/58; PULSE 80; RESP 19
[2023-06-12] MEDS: POTASSIUM CHLORIDE 10% ELIXIR 20 MEQ/15 ML UDCUP PO PRN ×3 (04:47→09:03)
[2023-06-12] MEDS: INSULIN HUMULIN R 100 UNIT/ML 3ML SQ SCH (06:32)
[2023-06-12 06:36] LABS: BASOPHILS # (AUTO) 0.02 K/uL (0.00-0.20); BASOPHILS % (AUTO) 0.6 % (0.0-5.0); EOSINOPHILS # (AUTO) 0.16 K/uL (0.00-0.70); EOSINOPHILS % (AUTO) 4.4 % (0.0-8.0); HEMATOCRIT 33.5 % (42-54); IMMATURE GRANULOCYTE ABSOLUTE 0.01 K/uL (0-1); LYMPHOCYTES # (AUTO) 0.9 K/uL (1.0-4.8); LYMPHOCYTES % (AUTO) 25.1 % (21.0-51.0); MEAN CORPUSCULAR HEMOGLOBIN 35.6 pg (27.0-33.0); MEAN CORPUSCULAR HGB CONC 35.2 g/dL (32.0-36.0); MEAN CORPUSCULAR VOLUME 101.2 fL (79-99); MONOCYTES # (AUTO) 0.6 K/uL (0.1-1.0); MONOCYTES % (AUTO) 15.7 % (3.0-13.0); NEUTROPHILS % (AUTO) 53.9 % (40.0-77.0); PLATELET COUNT (AUTO) 64 K/uL (130-400); RED BLOOD CELL COUNT(AUTO) 3.31 MIL/uL (4.50-6.20); RED CELL DISTRIBUTION WIDTH 13.4 % (11.0-15.5); WHITE BLOOD COUNT (AUTO) 3.6 K/uL (4.8-10.8)
[2023-06-12 06:48] LABS: MAGNESIUM 2.1 mg/dL (1.80-2.40); POTASSIUM 3.8 mmol/L (3.5-5.1)
[2023-06-12] MEDS: 0.9%NACL 1000ML 1,000 ML IV SCH (06:56)
[2023-06-12 07:20] LABS: PLATELET MORPHOLOGY COMMENT DECREASED
[2023-06-12 08:00] VITALS: BP 122/64; PULSE 64; RESP 18
[2023-06-12] MEDS: ASPIRIN 81MG CHEW TAB PO SCH (09:01)
== END 2023-06-12 11:30 | disposition home or self-care (01) ==
LOC: EDH 21:17 → EDHIP 06-11 00:42 → 3BH 06-11 04:47
PROVIDERS: ADMIT Internal Medicine Pulmonary Disease; ATTEND Internal Medicine Pulmonary Disease
DX: I16.1 Hypertensive emergency (principal); I10 Essential (primary) hypertension; F10.10 Alcohol abuse, uncomplicated; K74.60 Unspecified cirrhosis of liver; K76.9 Liver disease, unspecified; D69.6 Thrombocytopenia, unspecified; E83.42 Hypomagnesemia; D63.8 Anemia in other chronic diseases classified elsewhere; F41.9 Anxiety disorder, unspecified; Z79.899 Other long term (current) drug therapy; Z98.890 Other specified postprocedural states
CPT/HCPCS: 96365; 96366 ×2; 96375 ×2; 99285; 82550 ×3; 83735 ×4; 83874 ×3; 84484 ×3; 80048 ×4; 83880 ×2; 85025 ×2; 36415 ×3; 71045; 93005; 96361 ×2; 84100; 85027; 85610; 85730; 82948 ×5; 97161; 84145; J7030; J3411 ×2; J3490 ×2; G0378 ×34

== ENCOUNTER → 2023-06-27 | Outpatient (CLI) | payer OTHER, MEDICARE ==
[~2023-06-27] MED LIST changes: +ACET-66 PO; -AMOX1TAB16 PO; -ASHW500C PO; +BACL10TA PO; -CARV3.1262 PO; +CARV6.25 PO; -ESCI20TA38 PO; -FOLI1 PO; +GABA-529 PO; +KRIL1CAP35 PO; -LEVO5TAB13 PO; -LOSA25TA41 PO; +MELA10TA2 PO; -METR-172 PO; +MULT-1289 PO; -PANT40TA PO; -THIA100T91 PO; +[UNRECOGNIZED DRUG - OTHER] PO; -[UNRECOGNIZED DRUG - OTHER] PO; +milk thistle PO; +prevagen PO
== END | disposition home or self-care (01) ==
LOC: RAH 13:56
PROVIDERS: ATTEND Internal Medicine
DX: S40.012A Contusion of left shoulder, initial encounter (principal); M19.012 Primary osteoarthritis, left shoulder; M95.8 Other specified acquired deformities of musculoskeletal system; X58.XXXA Exposure to other specified factors, initial encounter; Y93.89 Activity, other specified; Y92.89 Other specified places as the place of occurrence of the external cause; Y99.8 Other external cause status
CPT/HCPCS: 73030

== ENCOUNTER 2023-11-22 23:18 | Emergency (ER) | payer OTHER, MEDICARE ==
[~2023-11-22] VITALS: Ht 160 cm; Wt 63.5 kg
[2023-11-23 04:35] LABS: APPEARANCE,URINE CLEAR (CLEAR); BILIRUBIN,URINE NEGATIVE (NEGATIVE); COLOR,URINE COLORLESS (YELLOW); GLUCOSE, URINE (UA) NEGATIVE (NEGATIVE); KETONES,URINE NEGATIVE (NEGATIVE); LEUKOCYTE ESTERASE ,URINE NEGATIVE Leu/uL (NEGATIVE); NITRATE,URINE NEGATIVE (NEGATIVE); OCCULT BLOOD,URINE NEGATIVE (NEGATIVE); PH,URINE 6.5 (5.0-8.0); PROTEIN,URINE NEGATIVE (NEGATIVE); UROBILINOGEN,URINE 0.2 mg/dL (0.2-1.0)
[2023-11-23 04:40] LABS: ADD UA MICROSCOPIC NO
[2023-11-23] MEDS: HYDROXYZINE 25 MG TABLET PO ONE (06:48)
[2023-11-23 08:06] VITALS: BP 154/80; PULSE 85; RESP 18; O2SAT 98
== END 2023-11-23 08:16 | disposition home or self-care (01) ==
LOC: EDH 23:18
DX: F41.9 Anxiety disorder, unspecified (principal); I10 Essential (primary) hypertension; Z79.899 Other long term (current) drug therapy
CPT/HCPCS: 81003

== ENCOUNTER 2024-02-12 22:50 | Emergency (ER) | payer OTHER, MEDICARE ==
[2024-02-12 23:17] LABS: BASOPHILS # (AUTO) 0.03 K/uL (0.00-0.20); BASOPHILS % (AUTO) 0.7 % (0.0-5.0); EOSINOPHILS # (AUTO) 0.04 K/uL (0.00-0.70); EOSINOPHILS % (AUTO) 0.9 % (0.0-8.0); HEMATOCRIT 31.6 % (42-54); LYMPHOCYTES # (AUTO) 1.2 K/uL (1.0-4.8); LYMPHOCYTES % (AUTO) 27.8 % (21.0-51.0); MEAN CORPUSCULAR HEMOGLOBIN 35.7 pg (27.0-33.0); MEAN CORPUSCULAR HGB CONC 36.7 g/dL (32.0-36.0); MEAN CORPUSCULAR VOLUME 97.2 fL (79-99); MONOCYTES # (AUTO) 0.5 K/uL (0.1-1.0); MONOCYTES % (AUTO) 10.6 % (3.0-13.0); NEUTROPHILS # (AUTO) 2.7 K/uL (1.8-7.7); PLATELET COUNT (AUTO) 46 K/uL (130-400); RED BLOOD CELL COUNT(AUTO) 3.25 MIL/uL (4.50-6.20); RED CELL DISTRIBUTION WIDTH 12.8 % (11.0-15.5); WHITE BLOOD COUNT (AUTO) 4.4 K/uL (4.8-10.8)
[2024-02-12 23:25] LABS: CREATININE 0.9 mg/dL (0.5-1.3); POTASSIUM 3.8 mmol/L (3.5-5.1)
[2024-02-12 23:29] LABS: ALBUMIN 3.3 g/dL (3.5-5.0); BILIRUBIN,TOTAL 1.7 mg/dL (0.2-1.0); TOTAL PROTEIN, SERUM 7.9 g/dL (6.0-8.3)
[2024-02-12] MEDS: ONDANSETRON 4MG INJ IVP ONE (23:29)
[2024-02-12] MEDS: FAMOTIDINE 20MG VIAL IV ONE (23:29)
[2024-02-12] MEDS: 0.9% NACL 500ML IV.SOLN 500 ML IV ONE (23:29)
[2024-02-13] MEDS: LORAZEPAM 2 MG/ML 1 ML VIAL IVP ONE (00:12)
[2024-02-13 03:15] LABS: AMPHET/METH SCREEN,URINE NEGATIVE (NEGATIVE); BARBITURATE SCREEN, URINE NEGATIVE (NEGATIVE); BENZODIAZEPINES SCREEN,URINE NEGATIVE (NEGATIVE); CANNABINOID SCREEN,URINE NEGATIVE (NEGATIVE); COCAINE SCREEN,URINE NEGATIVE (NEGATIVE); OPIATE SCREEN,URINE NEGATIVE (NEGATIVE); PHENCYCLIDINE SCREEN,URINE NEGATIVE (NEGATIVE)
[2024-02-13] MEDS: THIAMINE HCL 100 MG/ML 2ML VIAL IVP ONE (06:17)
[2024-02-13] MEDS: CHLORDIAZEPOXIDE HCL 25 MG CAP PO ONE (06:18)
[2024-02-13] MEDS: ONDANSETRON 4MG INJ IVP ONE (06:25)
[2024-02-13 09:18] VITALS: O2SAT 100
[2024-02-13] MEDS ORDERED: 0.9%NACL 1000ML 1,000 ML IV ONE (09:30)
[2024-02-13 10:16] VITALS: BP 167/81; PULSE 83; RESP 18
== END 2024-02-13 10:30 | disposition home or self-care (01) ==
LOC: EDH 22:50
DX: F10.129 Alcohol abuse with intoxication, unspecified (principal); I10 Essential (primary) hypertension; F03.94 Unspecified dementia, unspecified severity, with anxiety; K21.9 Gastro-esophageal reflux disease without esophagitis; Z79.899 Other long term (current) drug therapy; Z98.890 Other specified postprocedural states
CPT/HCPCS: 99285; 96374; 71045; 96375 ×2; 84484; 80053; 80305; 82140; 85025; 36415 ×2; 93005; 96376; J7040; J3490; J2405 ×2; J3411; J2060; J7030